=== PATIENT | male | born 2000 | race Caucasian/White ===

== ENCOUNTER 2021-02-23 12:02 | Emergency (ER) | payer OTHER ==
[~2021-02-23] VITALS: Ht 177.8 cm; Wt 68.2 kg
[2021-02-23 12:23] VITALS: BP 142/87
== END 2021-02-23 14:26 | disposition home or self-care (01) ==
LOC: ER 12:02
DX: U07.1 COVID-19 (principal)
CPT/HCPCS: 87635; 99283; C9803

== ENCOUNTER 2021-02-24 20:54 | Emergency (ER) | payer OTHER ==
[~2021-02-24] VITALS: Ht 180.3 cm; Wt 63.6 kg
[2021-02-24] MEDS ORDERED: TETanus/Pertussis (Acell)/Diphther VAC/PF (Tdap-Adult) 0.5ml syringe IMVAC ONE (22:30)
[2021-02-24 23:23] VITALS: BP 122/63
== END 2021-02-24 23:15 | disposition home or self-care (01) ==
LOC: ER 20:55
DX: S61.412A Laceration without foreign body of left hand, initial encounter (principal); U07.1 COVID-19; Z20.3 Contact with and (suspected) exposure to rabies; X58.XXXA Exposure to other specified factors, initial encounter; Y93.89 Activity, other specified; Y92.89 Other specified places as the place of occurrence of the external cause; Y99.8 Other external cause status
CPT/HCPCS: 12001; 90471; 90715; 99283

== ENCOUNTER 2024-08-24 02:22 | Emergency (ER) | payer OTHER ==
[~2024-08-24] VITALS: Ht 193 cm; Wt 96.4 kg
[2024-08-24 02:33] VITALS: BP 150/98; PULSE 121; RESP 20; TEMP 99.2; O2SAT 99
== END 2024-08-24 02:54 ==
LOC: ER 02:23 → EEVIPCON 02:23 → ER 02:54
DX: S00.83XA Contusion of other part of head, initial encounter (principal); R04.0 Epistaxis; Y08.89XA Assault by other specified means, initial encounter; Y93.89 Activity, other specified; Y92.89 Other specified places as the place of occurrence of the external cause; Y99.8 Other external cause status
CPT/HCPCS: 99283

== ENCOUNTER 2024-10-16 15:26 | Emergency (ER) | payer OTHER ==
[~2024-10-16] VITALS: Ht 193 cm; Wt 87.5 kg
[2024-10-16 15:30] VITALS: BP 152/95; PULSE 114; TEMP 99.1; O2SAT 98
[2024-10-16] MEDS ORDERED: CIPR7.5D7 EACH EAR (15:56)
[2024-10-16 16:13] VITALS: RESP 16
== END 2024-10-16 16:15 | disposition home or self-care (01) ==
LOC: ER 15:27
DX: H60.91 Unspecified otitis externa, right ear (principal)
CPT/HCPCS: 99283